=== PATIENT | female | born 1975 | race Caucasian/White ===

== ENCOUNTER 2018-03-19 11:19 | Emergency (ER) | payer BC ==
[2018-03-19 11:47] VITALS: BP 129/80
--- NOTE | 2018-03-19 12:45 | UC ---
General HPI - HPI Summary HPI Summary: 42 y/o female 1 day hx of fatigue started this morning as she woke up , getting sob with limited exertion hx of DM 1, HTN, CRF waiting for kidney transplant no fever , no chills, no cough , no dysuria, no n/v/d/c - History of Current Complaint Chief Complaint: UCGeneralIllness Stated Complaint: HEART RACING/RIGHT HIP PAIN Time Seen by Provider: 03/19/18 11:28 Hx Obtained From: Patient Hx Last Menstrual Period: 03/09/10 Onset/Duration: Gradual Onset, Lasting Days - 1, Still Present Timing: Constant Onset Severity: Moderate Current Severity: Moderate Pain Intensity: 6 Associated Signs & Symptoms: Positive: SOB. Negative: Agitation, Abdominal Pain , Anticoagulation Therapy, Back Pain, Confusion, Cough, Chest Pain, Decreased Responsiveness, Dizziness, Diarrhea, Dysuria, Decreased Oral Intake, Diaphoresis , Edema, Fever, Hematemesis, Hemoptysis, Immunocompromised, In-Dwelling Medication Device, Melena, Nausea, Palpitations, Recent Medication Changes, Syncope, Trauma, Vomiting, Wheezing, Weakness - Allergy/Home Medications Allergies/Adverse Reactions: Allergies Allergy/AdvReac Type Severity Reaction Status Date / Time MS Sulfa Antibiotics Allergy rash and Verified 03/19/18 11:33 [Sulfa Antibiotics] renal function changes Home Medications: Home Medications Sodium Polystyrene Sulfon/Sorb [Kionex] 30 ml PO DAILY 03/19/18 [History Confirmed 03/19/18] PMH/Surg Hx/FS Hx/Imm Hx Endocrine History: Diabetes, Thyroid Disease Cardiovascular History: Hypertension GI/ History: Renal Disease - Surgical History Surgical History: Yes Surgery Procedure, Year, and Place: hernia repair as , appy - Family History Known Family History: Positive: Hypertension - Social History Alcohol Use: None Substance Use Type: None Smoking Status (MU): Never Smoked Tobacco - Immunization History Most Recent Influenza Vaccination: 2013 Most Recent Tetanus Shot: 2010 Most Recent Pneumonia Vaccination: 2012 Review of Systems All Other Systems Reviewed And Are Negative: Yes Constitutional: Positive: Fatigue Skin: Positive: Negative Eyes: Positive: Negative ENT: Positive: Negative Respiratory: Positive: Shortness Of Breath Cardiovascular: Positive: Negative Neurological: Positive: Weakness Is Patient Immunocompromised?: Yes Physical Exam Triage Information Reviewed: Yes Appearance: No Pain Distress, Well-Nourished Vital Signs: Initial Vital Signs Temp 97.8 F 03/19/18 11:36 Pulse 89 03/19/18 11:36 Resp 20 03/19/18 11:36 BP 129/80 03/19/18 11:36 Pulse Ox 100 03/19/18 11:36 Vital Signs Reviewed: Yes Eye Exam: Normal Eyes: Positive: Conjunctiva Clear ENT: Positive: Normal ENT inspection, Hearing grossly normal, Pharynx normal Neck exam: Normal Neck: Positive: Supple, Nontender, No Lymphadenopathy Respiratory: Positive: Chest non-tender, Lungs clear, Normal breath sounds Cardiovascular: Positive: RRR, No Murmur, Pulses Normal Abdominal Exam: Normal Abdomen Description: Positive: Nontender, Soft. Negative: CVA Tenderness (R), CVA Tenderness (L), Distended, Guarding Bowel Sounds: Positive: Present Course/Dx - Diagnoses Provider Diagnosis: Fatigue Discharge - Sign-Out/Discharge Documenting (check all that apply): Patient Departure All imaging exams completed and their final reports reviewed: No Studies - Discharge Plan Condition: Stable Disposition: HOME Patient Education Materials: Fatigue (ED) Referrals: Mahnaz Benson MD [Primary Care Provider] - 5 Days Additional Instructions: will do blood work to check on kidney function and sodium and potassium call the office tomorrow with the results please go to the Emergency room if getting worse - Billing Disposition and Condition Condition: STABLE Disposition: Home
[2018-03-19 19:19] LABS: ABS Basophils 0.1 10^3/ul (0-0.2); ABS Eosinophils 0.1 10^3/ul (0-0.6); ABS Lymphocytes 1.6 10^3/ul (1.0-4.8); ABS Monocytes 0.4 10^3/ul (0-0.8); ABS Neutrophils 7.3 10^3/ul (1.5-7.7); ABS Nucleated RBC 0 10^3/ul; Eosinophil % 1.2 %; Hematocrit 37 % (35-47); Lymphocyte % 17.2 %; Mean Corpuscular HGB Conc 33 g/dl (31-36); Mean Corpuscular Hemoglobin 30 pg (27-31); Mean Corpuscular Volume 91 fL (80-97); Mean Platelet Volume 9.8 fL (7.4-10.4); Nucleated Red Blood Cells % 0.1; Platelet Count 274 10^3/ul (150-450); Red Blood Count 4.05 10^6/ul (4.00-5.40); Red Cell Distribution Width 15 % (10.5-15); White Blood Count 9.5 10^3/ul (3.5-10.8)
[2018-03-19 19:24] LABS: Calcium 7.5 mg/dL (8.6-10.3); Total Bilirubin 0.4 mg/dL (0.2-1.0)
[2018-03-19 19:30] LABS: Albumin/Globulin Ratio 1.5 (1-3); BUN/Creatinine Ratio 15.1 (8-20); Globulin 2.6 g/dL (2-4); Total Protein 6.6 g/dL (6.4-8.9)
[2018-03-19 19:34] LABS: Potassium 6.3 mmol/L (3.5-5.0)
--- NOTE | 2018-03-19 19:44 | UC ---
- Progress Note Progress Note: In light of patients presenting complaint and K of 6.3 I suggest you call her and have her go to the ER for evaluation If she elects to go to a hospital other than [facility] please let me know Inform her that a high potassium can cause serious or fatal heart arrthymias Course/Dx - Diagnoses Provider Diagnoses: Fatigue Discharge - Sign-Out/Discharge Documenting (check all that apply): Post-Discharge Follow Up All imaging exams completed and their final reports reviewed: No Studies - Discharge Plan Condition: Stable Disposition: HOME Patient Education Materials: Fatigue (ED) Referrals: Mahnaz Benson MD [Primary Care Provider] - 5 Days Additional Instructions: will do blood work to check on kidney function and sodium and potassium call the office tomorrow with the results please go to the Emergency room if getting worse - Billing Disposition and Condition Condition: STABLE Disposition: Home
== END 2018-03-19 12:43 | disposition home or self-care (01) ==
LOC: UCCORT 11:19
DX: R53.83 Other fatigue (principal); E10.9 Type 1 diabetes mellitus without complications; I12.9 Hypertensive chronic kidney disease with stage 1 through stage 4 chronic kidney disease, or unspecified chronic kidney disease; N18.9 Chronic kidney disease, unspecified; Z88.2 Allergy status to sulfonamides
CPT/HCPCS: 36415; 80053; 85025; 93005; 99211; G0463

== ENCOUNTER 2018-03-21 12:22 | Emergency (ER) | payer BC ==
--- NOTE | 2018-03-21 13:23 | ED ---
Complex/Multi-Sys Presentation - HPI Summary HPI Summary: A 42 y/o F presents to ED for follow-up on elevated potassium of 6.3 onset two days ago. Pt is in Stage V renal failure, and due for a transplant in a few months. Two days ago, she woke up with irregular, racing heart rate and became easily fatigued after walking across the room (these sx spontaneously resolved. ) She went to [facility] for evaluation, and everything was OK. Later that they day, [facility] called her with lab results including the elevated potassium. She was celebrating [place] yesterday and feeling much improved, so she did follow-up until today. She notes that she has had previously high potassium last month, and was seen at [facility], and the sx spontaneously resolved. 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 - History Of Current Complaint Chief Complaint: EDGeneral Time Seen by Provider: 03/21/18 13:19 Hx Obtained From: Patient Onset/Duration: Resolved Severity Currently: None Severity Initially: Mild Associated Signs And Symptoms: Positive: Palpitations - irregular, racing heart rate, Other - pos: fatigue, elevated potassium - Allergies/Home Medications Allergies/Adverse Reactions: Allergies Allergy/AdvReac Type Severity Reaction Status Date / Time Sulfa (Sulfonamide Allergy Rash Verified 03/21/18 12:38 Antibiotics) PMH/Surg Hx/FS Hx/Imm Hx Previously Healthy: No Endocrine/Hematology History: Reports: Hx Diabetes, Hx Thyroid Disease Cardiovascular History: Reports: Hx Hypercholesterolemia, Hx Hypertension GI History: Reports: Other GI Disorders - Celiac Musculoskeletal History: Reports: Hx Bursitis - Surgical History Surgery Procedure, Year, and Place: hernia repair as infant, appy Infectious Disease History: No Infectious Disease History: Reports: Hx Shingles Denies: Hx Clostridium Difficile, Hx Hepatitis, Hx Human Immunodeficiency Virus (HIV), Hx of Known/Suspected MRSA, Hx Tuberculosis, Hx Known/Suspected VRE , Hx Known/Suspected VRSA, History Other Infectious Disease, Traveled Outside the [place] in Last 30 Days - Family History Known Family History: Positive: Hypertension - Social History Occupation: Employed Full-time Lives: Alone Alcohol Use: None Hx Substance Use: No Substance Use Type: Reports: None Hx Tobacco Use: No Smoking Status (MU): Never Smoked Tobacco Review of Systems Positive: Fatigue. Negative: Fever Positive: Palpitations All Other Systems Reviewed And Are Negative: Yes Physical Exam - Summary Physical Exam Summary: Appearance: Well-appearing, Well-nourished, lying in bed comfortably Skin: Warm, dry, no obvious rash Eyes: sclera anicteric, no conjunctival pallor ENT: mucous membranes moist, pharynx appears normal Neck: Supple, nontender Respiratory: Clear to auscultation, no signs of respiratory distress Cardiovascular: Normal S1, S2. No murmurs. Normal distal pulses in tibial and radial bilaterally. Abdomen: Soft, nontender, normal active bowel sounds present Musculoskeletal: Normal, Strength/ROM Intact Neurological: A&Ox3, awake and alert, mentation is normal, speech is fluent and appropriate Psychiatric: affect is normal, does not appear anxious or depressed Triage Information Reviewed: Yes Vital Signs On Initial Exam: Initial Vitals Temp Pulse Resp BP Pulse Ox 98.2 F 82 16 173/98 100 03/21/18 12:34 03/21/18 12:34 03/21/18 12:34 03/21/18 12:34 03/21/18 12:34 Vital Signs Reviewed: Yes Diagnostics - Vital Signs Vital Signs Temp Pulse Resp BP Pulse Ox 03/21/18 12:34 98.2 F 82 16 173/98 100 - Laboratory Result Diagrams: 03/21/18 13:29 Lab Statement: Any lab studies that have been ordered have been reviewed, and results considered in the medical decision making process. - EKG 1244 Cardiac Rate: NL - 74bpm EKG Rhythm: Sinus Rhythm Summary of EKG Findings: NSR at 74 BPM, P waves, QRS complex, and T waves are within normal limits, T waves and intervals are normal, no ischemic changes. Re-Evaluation - Re-Evaluation 1 Re-Evaluation Time: 14:12 Change: Unchanged Comment: Discussing results and plan to DC with pt. Pt voiced understanding. Complex Multi-Symp Course/Dx Course Of Treatment: Pt is a 42 y/o F presenting for follow-up on elevated potassium: 6.3 onset two days ago. Pt is in Stage V renal failure, and due for a transplant in a few months. Two days ago, she woke up with irregular heart rate and became easily fatigued after walking across the room, these sx spontaneously resolved. She went to [facility] for evaluation, and everything was OK. Later that they day, [facility] called her re: the elevated potassium. She was celebrating [place] yesterday and feeling much improved, so she did follow-up until today. Lab work shows Potassium: 5.6, BUN: 58, Creatinine: 4.05 , Glucose: 242, Calcium: 7.7. EKG is NSR at 74bpm. Pt will be D/C home. - Diagnoses Provider Diagnoses: Chronic renal failure, Hyperkalemia Discharge - Sign-Out/Discharge Documenting (check all that apply): Patient Departure - DC - Discharge Plan Condition: Good Disposition: HOME Patient Education Materials: Chronic Kidney Disease (ED) Referrals: Mahnaz Benson MD [Primary Care Provider] - Additional Instructions: Your potassium today was 5.6, only mildly elevated. Avoid foods high in potassium for the time being. Contact your kidney specialist tomorrow to see when they would like this rechecked. - Billing Disposition and Condition Condition: GOOD Disposition: Home - Attestation Statements Document Initiated by Hoang: Yes Documenting Scribe: Codey Payton Provider For Whom Hoang is Documenting (Include Credential): Dr. Simon Sequeira MD Scribe Attestation: I, sheila Gutierrezibed for Dr. Simno Sequeira MD on 03/21/18 at 1926. Scribe Documentation Reviewed: Yes Provider Attestation: The documentation as recorded by the Codey phelan accurately reflects the service I personally performed and the decisions made by me, Dr. Simon Sequeira MD Status of Scribe Document: Viewed
[2018-03-21 13:55] LABS: BUN/Creatinine Ratio 14.3 (8-20); Calcium 7.7 mg/dL (8.6-10.3); EGFR Non-African American 12.2 (>60)
[2018-03-21 14:04] LABS: Potassium 5.6 mmol/L (3.5-5.0)
[2018-03-21 14:46] VITALS: BP 171/95
== END 2018-03-21 14:45 | disposition home or self-care (01) ==
LOC: ED 12:22
DX: E87.5 Hyperkalemia (principal); I12.0 Hypertensive chronic kidney disease with stage 5 chronic kidney disease or end stage renal disease; E11.22 Type 2 diabetes mellitus with diabetic chronic kidney disease; N18.5 Chronic kidney disease, stage 5; E07.9 Disorder of thyroid, unspecified; Z88.2 Allergy status to sulfonamides; K90.0 Celiac disease; M71.9 Bursopathy, unspecified
CPT/HCPCS: 36415; 80048; 93005; 99282